=== PATIENT | female | born 1980 | race Caucasian/White ===

== ENCOUNTER → 2016-05-22 | Outpatient (CLI) | payer OTHER ==
[~2016-05-22] MED LIST: AMOX/CLAV POT 81 TAB PO; ANAPROX DS550 MG PO; ANTIVERT/2525 M1 PO; BACTRIM DS 8001 TA1 PO; CELEXA10 MG PO; CEPHALEXIN500 M1 PO; CHLORHEXIDINE G10 M1 PO; CLARITIN10 MG PO; CLEOCIN150 MG PO; FLEXERIL10 MG PO; FLEXERIL5 MG PO; HYDROCODONE BIT1 T11 PO; IBU800 MG PO; MACROBID100 M1 PO; MOTRIN800 MG PO; Meclizine25 MG PO; Motrin,Rufen800 MG PO; NAPROSYN500 MG PO; NKHM PO; PAXIL10 MG PO; PERCOCET 325 MG1 TA2 PO; PHENERGAN25 M1 PO; PREDNISONE50 MG PO; PRILOSEC40 MG PO; ULTRAM50 MG PO; XANAX0.25 MG PO; XANAX0.5 MG PO; ZITHROMAX Z PA250 MG PO; ZOVIRAX800 MG PO; Zofran4 MG PO
== END | disposition home or self-care (01) ==
LOC: RAD 11:47
DX: M51.26 Other intervertebral disc displacement, lumbar region (principal); M25.511 Pain in right shoulder; R20.0 Anesthesia of skin; M25.561 Pain in right knee; M54.5 Low back pain; M25.361 Other instability, right knee

== ENCOUNTER 2017-07-21 19:47 | Emergency (ER) | payer OTHER ==
[~2017-07-21] VITALS: Ht 175.2 cm; Wt 65.8 kg
[2017-07-21 19:51] VITALS: BP 119/73
== END 2017-07-21 20:37 | disposition home or self-care (01) ==
LOC: ED 19:47
DX: R42 Dizziness and giddiness (principal); Z90.89 Acquired absence of other organs; Z98.51 Tubal ligation status; Z98.890 Other specified postprocedural states

== ENCOUNTER 2017-10-12 12:12 | Emergency (ER) | payer OTHER ==
[~2017-10-12] VITALS: Ht 175.2 cm; Wt 61.2 kg
[2017-10-12 12:18] VITALS: BP 130/73
[2017-10-12] MEDS ORDERED: PREDNISONE10 MG PO (12:19)
== END 2017-10-12 14:38 | disposition home or self-care (01) ==
LOC: ED 12:12
DX: M25.521 Pain in right elbow (principal); R03.0 Elevated blood-pressure reading, without diagnosis of hypertension; F41.9 Anxiety disorder, unspecified; F32.9 Major depressive disorder, single episode, unspecified; Z90.49 Acquired absence of other specified parts of digestive tract; Z98.51 Tubal ligation status

== ENCOUNTER 2018-02-14 20:12 | Emergency (ER) | payer OTHER ==
[~2018-02-14] VITALS: Ht 175.2 cm; Wt 65.8 kg
[~2018-02-14 20:12] MED LIST changes: +PREDNISONE10 MG PO
[2018-02-14 20:44] VITALS: BP 104/73
[2018-02-14] MEDS ORDERED: LIDEX 0.05% CRE15 GM T (21:44)
== END 2018-02-14 23:36 | disposition home or self-care (01) ==
LOC: ED 20:12
DX: M25.462 Effusion, left knee (principal); R21 Rash and other nonspecific skin eruption; Z98.51 Tubal ligation status; Z90.49 Acquired absence of other specified parts of digestive tract

== ENCOUNTER → 2019-03-09 | Outpatient (CLI) | payer OTHER ==
[~2019-03-09] MED LIST changes: +LIDEX 0.05% CRE15 GM T
--- NOTE | ~2019-03-09 | EKG ---
[place], [place] ELECTROCARDIOGRAM REPORT NAME: MARCE HALL UNIT #: [id number] ROOM: DOCTOR: MALIKA DRAFT REPORT BIRTHDATE: [birth year] [facility] Test Date: 2019-03-09 Test Time: 08:09:51 Pat Name: MARCE HALL Department: Room: OP Gender: F Heavy Equipment Mechanic: Keesha Valadez : 1980 Requested By: BRII BOWERS Order Number: [id number] Reading MD: Hipolito Sanchez Measurements Intervals Jackson Rate: 66 P: 34 AR: 144 QRS: 12 QRSD: 108 T: 41 QT: 425 QTc: 446 Interpretive Statements Sinus rhythm Atrial premature complex RSR' in V1 or V2, probably normal variant Electronically Signed On 03-09-2019 9:42:49 PST by Hipolito Sanchez CM:EKGRPT:ELECTROCARDIOGRAM REPORT BRII DALY DRAFT REPORT BRII BOWERS
--- NOTE | ~2019-03-09 | PF ---
[place], [place] PULMONARY FUNCTION TEST [id number] UNIT #: [id number] ROOM: DOCTOR: SAM DENNIS MD,MILLY BIRTHDATE: [birth year] DOS: 03/09/2019 ORDERED BY: Shaji Bernstein. HISTORY: The recorded 39-year-old female, height of 69 inches, weight 175 pounds, BMI 25. Testing done for assessment of symptoms of shortness of breath. Tobacco use was noted 1 pack of cigarettes per day for 12 years, which was discontinued 13 years ago. SPIROMETRY: The FVC 3.27 liters as 72% predicted value, FEV1 of 2.71 liters, 77% predicted value. Ratio of FEV1/FVC recorded as 77%. Post-bronchodilator, no changes for patient improvement was noted. Flow volume loop was suggestive of mild obstructive airway pattern. LUNG VOLUME: Thoracic gas volume recorded 69%, residual volume 89%, total lung capacity 80%. The patient's airway resistance and passive conductance noted normal. The patient's lung diffusion mildly decreased recorded as 72% without correction of carbon monoxide hemoglobin values. FINAL IMPRESSION: Current test was noted nonspecific mild reduction FEV1/FVC. Clinical correlation would be advised. MILLY VARGAS MD CM:PFREPORT:PULMONARY FUNCTION TEST [id number] MILLY DENNIS MD
== END | disposition home or self-care (01) ==
LOC: CARD 06:27
DX: I34.1 Nonrheumatic mitral (valve) prolapse (principal); R06.02 Shortness of breath; Z82.49 Family history of ischemic heart disease and other diseases of the circulatory system

== ENCOUNTER 2020-05-24 00:26 | Emergency (ER) | payer OTHER ==
[~2020-05-24] VITALS: Ht 175.2 cm; Wt 69.9 kg
[2020-05-24 00:35] VITALS: BP 124/87
== END 2020-05-24 02:24 | disposition home or self-care (01) ==
LOC: ED 00:26
DX: G43.909 Migraine, unspecified, not intractable, without status migrainosus (principal)

== ENCOUNTER 2020-09-09 17:42 | Emergency (ER) | payer OTHER ==
[~2020-09-09] VITALS: Ht 175.2 cm; Wt 68.9 kg
[2020-09-09 17:47] VITALS: BP 128/79
== END 2020-09-09 22:14 | disposition home or self-care (01) ==
LOC: ED 17:42
DX: S49.92XA Unspecified injury of left shoulder and upper arm, initial encounter (principal); F41.9 Anxiety disorder, unspecified; F32.9 Major depressive disorder, single episode, unspecified; Z87.891 Personal history of nicotine dependence; Z79.899 Other long term (current) drug therapy; Z90.49 Acquired absence of other specified parts of digestive tract; Z98.51 Tubal ligation status; Z98.890 Other specified postprocedural states; W01.0XXA Fall on same level from slipping, tripping and stumbling without subsequent striking against object, initial encounter; Y93.89 Activity, other specified; Y92.89 Other specified places as the place of occurrence of the external cause; Y99.8 Other external cause status

== ENCOUNTER → 2023-06-25 | Outpatient (CLI) | payer OTHER | END | disposition home or self-care (01) | LOC: MAMMO 13:18 | PROVIDERS: ATTEND Nurse Practitioner Women's Health | DX: Z12.31 Encounter for screening mammogram for malignant neoplasm of breast (principal); R14.0 Abdominal distension (gaseous); N60.02 Solitary cyst of left breast; N60.01 Solitary cyst of right breast; N85.2 Hypertrophy of uterus; D25.2 Subserosal leiomyoma of uterus; Z98.82 Breast implant status ==

== ENCOUNTER 2024-08-03 11:20 | Emergency (ER) | payer OTHER ==
[~2024-08-03] VITALS: Ht 172.7 cm; Wt 83.9 kg
[2024-08-03 11:25] VITALS: BP 139/90
[2024-08-03] MEDS ORDERED: MIXED AMPHETAMI30 MG PO (11:26)
[2024-08-03] MEDS ORDERED: FLUTICASONE PRO15 GM INH (11:27)
[2024-08-03] MEDS ORDERED: CYCLOBENZAPRINE5 M3 PO (11:33)
[2024-08-03] MEDS ORDERED: NAPROSYN500 MG PO (11:33)
[2024-08-03] MEDS ORDERED: Ketorolac Tromethamine 30 MG/ML VIAL IM ONE (11:35)
[2024-08-03] MEDS ORDERED: methylPREDNISolone sod succ 125 MG VIAL IM ONE (11:35)
== END 2024-08-03 11:53 | disposition home or self-care (01) ==
LOC: ED 11:20
DX: M62.838 Other muscle spasm (principal); F32.A Depression, unspecified; F41.9 Anxiety disorder, unspecified; Z79.899 Other long term (current) drug therapy; Z90.49 Acquired absence of other specified parts of digestive tract; Z98.51 Tubal ligation status; Z98.890 Other specified postprocedural states